=== PATIENT | female | born 1995 | race Caucasian/White ===

== ENCOUNTER 2019-04-25 12:47 | Emergency (ER) | payer MEDICAID, OTHER ==
[~2019-04-25] VITALS: Ht 162.6 cm; Wt 104.5 kg
[2019-04-25 14:49] LABS: APPEARANCE,URINE CLOUDY (CLEAR); BILIRUBIN,URINE NEGATIVE (NEGATIVE); GLUCOSE, URINE (UA) NEGATIVE (NEGATIVE); KETONES,URINE NEGATIVE (NEGATIVE); LEUKOCYTE ESTERASE ,URINE MODERATE (NEGATIVE); NITRATE,URINE NEGATIVE (NEGATIVE); OCCULT BLOOD,URINE NEGATIVE (NEGATIVE); PH,URINE 5.5 (5.0-8.0); PROTEIN,URINE NEGATIVE (NEGATIVE); UROBILINOGEN,URINE 0.2 mg/dL (<=1.0)
[2019-04-25 14:55] LABS: BACTERIA,URINE Few /HPF (None Seen); RBC,URINE 0-2 /HPF (0-2); SQUAMOUS EPITHELIAL CELL,UR Moderate /LPF (None Seen)
[2019-04-25 16:11] VITALS: BP 119/84
== END 2019-04-25 16:13 | disposition home or self-care (01) ==
LOC: EMS 12:48
DX: N39.0 Urinary tract infection, site not specified (principal); Z91.040 Latex allergy status
CPT/HCPCS: 87086